=== PATIENT | male | born 1990 | race Caucasian/White ===

== ENCOUNTER 2018-10-04 14:47 | Emergency (ER) | payer OTHER ==
[~2018-10-04] VITALS: Ht 170.2 cm; Wt 63.5 kg
[~2018-10-04 14:47] MED LIST: CLONAZEPAM1 MG
[2018-10-04] MEDS ORDERED: SEROQUEL25 MG (15:05)
[2018-10-04] MEDS ORDERED: TOPAMAX50 MG (15:06)
== END 2018-10-04 21:13 | disposition home or self-care (01) ==
LOC: ER 14:47
DX: K52.9 Noninfective gastroenteritis and colitis, unspecified (principal)

== ENCOUNTER 2018-10-28 01:48 | Emergency (ER) | payer OTHER ==
[~2018-10-28] VITALS: Ht 170.2 cm; Wt 63.5 kg
[~2018-10-28 01:48] MED LIST changes: +SEROQUEL25 MG; +TOPAMAX50 MG
== END 2018-10-28 14:23 | disposition home or self-care (01) ==
LOC: ER 01:48
DX: K29.70 Gastritis, unspecified, without bleeding (principal); R10.13 Epigastric pain; R10.84 Generalized abdominal pain

== ENCOUNTER 2019-03-30 12:49 | Emergency (ER) | payer OTHER ==
[~2019-03-30] VITALS: Ht 170.2 cm; Wt 68.9 kg
[2019-03-30] MEDS ORDERED: ZANTAC150 M3 (12:57)
[2019-03-30] MEDS ORDERED: DEXILANT30 MG (12:57)
[2019-03-30] MEDS ORDERED: PRILOSEC OTC20 MG (12:58)
== END 2019-03-30 18:45 | disposition home or self-care (01) ==
LOC: ER 12:49
DX: K29.70 Gastritis, unspecified, without bleeding (principal)